=== PATIENT | male | born 1930 | race Caucasian/White ===

== ENCOUNTER 2017-08-17 13:20 | Emergency (ER) | payer MEDICARE, BC ==
[2017-08-17 13:35] VITALS: RESP 16
--- NOTE | 2017-08-17 13:47 | ED ---
General Adult HPI - General Chief complaint: Fall Stated complaint: Fell Time Seen by Provider: 08/17/17 13:34 Source: patient, RN notes reviewed Mode of arrival: EMS Limitations: no limitations - History of Present Illness Initial comments: 87-year-old male presents to the emergency department with a chief complaint of fall. Patient states that his knee buckled with loss although 6 years. Patient denies any use of Coumadin resolved. He states he does take a baby aspirin. Patient states it is little bit of a headache and some right shoulder right elbow pain. Patient states there is no loss of consciousness. He denies any nausea vomiting he denies any neck pain. Patient states he just has a continuous ache in the right shoulder. Patient states is up-to-date. Patient was concerned due to his symptoms. Patient denies any recent fever, chills, shortness of breath, chest pain, back pain, abdominal pain, nausea vomiting, numbness or tingling, dysuria or hematuria, constipation or diarrhea, visual changes, or any other current symptoms. - Related Data Home Medications Medication Instructions Recorded Confirmed Aspirin 81 mg PO DAILY 08/17/17 08/17/17 Atenolol [Tenormin] 25 mg PO DAILY 08/17/17 08/17/17 Cholecalciferol [Vitamin D3] 1,000 unit PO DAILY 08/17/17 08/17/17 Diltiazem HCl [Cartia Xt] 120 mg PO DAILY 08/17/17 08/17/17 Indapamide [Lozol] 1.25 mg PO DAILY 08/17/17 08/17/17 Niacin 1,000 mg PO DAILY 08/17/17 08/17/17 Omeprazole [PriLOSEC] 20 mg PO DAILY 08/17/17 08/17/17 Vit C/E/Zn/Coppr/Lutein/Zeaxan 1 cap PO DAILY 08/17/17 08/17/17 [Preservision Areds 2 Softgel] Allergies Allergy/AdvReac Type Severity Reaction Status Date / Time No Known Allergies Allergy Verified 08/17/17 14:19 Review of Systems ROS Statement: Those systems with pertinent positive or pertinent negative responses have been documented in the HPI. ROS Other: All systems not noted in ROS Statement are negative. Past Medical History Past Medical History: GERD/Reflux, Hypertension History of Any Multi-Drug Resistant Organisms: None Reported Additional Past Surgical History / Comment(s): back surgery Past Psychological History: No Psychological Hx Reported Smoking Status: Current some day smoker Past Alcohol Use History: Daily, Occasional Past Drug Use History: None Reported General Exam - General Exam Comments Initial Comments: General: The patient is awake and alert, in no distress, and does not appear acutely ill. Head: Patient does appear to have a large hematoma does have an associated abrasion to the right posterior aspect of the head Eye: Pupils are equal, round and reactive to light, extra-ocular movements are intact; there is normal conjunctiva bilaterally. No signs of icterus. Ears, nose, mouth and throat: There are moist mucous membranes and no oral lesions. Neck: The neck is supple, there is no tenderness. Cardiovascular: There is a regular rate and rhythm. No murmur, rub or gallop is appreciated. Respiratory: Lungs are clear to auscultation, respirations are non-labored, breath sounds are equal. No wheezes, stridor, rales, or rhonchi. Gastrointestinal: Soft, non-distended, non-tender abdomen without masses or organomegaly noted. There is no rebound or guarding present. No CVA tenderness. Bowel sounds are unremarkable. Back: There is no tenderness to palpation in the midline. There is no obvious deformity. No rashes noted. Musculoskeletal: Normal ROM, minimal tenderness. The right shoulder. Patient does have some skin tears on to the right elbow. There is no pedal edema. There is no calf tenderness or swelling. Sensation intact. Pulses equal bilaterally 2+. Neurological: CN II-XII intact, There are no obvious motor or sensory deficits. Coordination appears grossly intact. Speech is normal. Skin: Skin is warm and dry and no rashes or lesions are noted. Psychiatric: Cooperative, appropriate mood & affect, normal judgment. Limitations: no limitations Course Vital Signs 08/17/17 08/17/17 13:31 15:15 Temperature 97.8 F 97.8 F Pulse Rate 68 63 Respiratory 16 16 Rate Blood Pressure 185/79 175/75 O2 Sat by Pulse 97 95 Oximetry Medical Decision Making - Medical Decision Making 87-year-old male presents emergency Department with a chief complaint of fall. At this time patient's CAT scan is reviewed that does show an acute subdural hemorrhage. At this time we were waiting for family members to arrive because the patient stated they could choose where the patient will be transferred to. This and they're requesting home on. X-rays have come back as well. At this time they do show an old fracture to the right humerus. Patient does recall an event where he did have arm pain many many years ago. At this time he is not tender to the location of the fracture. This tenderness is most likely old fracture. They also are suspicious for possible avulsion fracture patient has no point tenderness over the area. At this time the patient will be transferred to [facility] for continued care. Dr. Rich is in agreement with the transfer. All the questions of the patient family have been answered. Blood pressure has been stable here he is feeling better with morphine. He will be transferred. - Radiology Data Radiology results: report reviewed, image reviewed Disposition Clinical Impression: Fall, Subdural hematoma, Scalp hematoma, Skin tear of right elbow without complication, Contusion of right elbow Disposition: OTHER INSTITUTION NOT DEFINED Referrals: Nonstaff,Physician [Primary Care Provider] - 1-2 days - Out of Hospital Transfer - Req. Specs Out of Hospital Transfer - Requested Specifics: Other Emergency Center ( [facility])
[2017-08-17] MEDS ORDERED: SODIUM CHLORIDE 0.9% 500 ML IV STA (14:49)
--- NOTE | 2017-08-17 14:49 | CT ---
EXAMINATION TYPE: CT brain [place] wo con DATE OF EXAM: 08/17/2017 COMPARISON: NONE HISTORY: Fall injury, abrasion to posterior head area. CT DLP: 1280.6 mGycm Automated exposure control for dose reduction was used. TECHNIQUE: CT scan of the head and cervical spine are performed without contrast. FINDINGS: Hyperdense material is noted overlying the left frontal lobe sulci as well as extending i nto the left temporal lobe compatible with subdural hemorrhage which is acute. There is also a small superficial extracalvarial hematoma overlying the right parietal bone. There is minimal mass effect f rom the hemorrhage. Fourth ventricle is midline. There is diffuse cortical atrophy. There are chronic white matter ischemic changes. Diffuse pain masses noted posterior to the dens process. There are diffuse degenerative changes noted in the cervical spine with multiple endplate osteophytes as well as facet hypertrophy contributing v ariable amounts of central canal and neural foraminal stenosis. No definite acute fracture or subluxa tion is identified. Visualized lung apices are unremarkable. Some heterotopic ossification is identif ied posterior to the mid to lower cervical spine. IMPRESSION: Acute subdural hemorrhage is identified overlying the left frontal lobe sulci extending in the left t emporal lobe. This does not cause significant mass effect. Findings were discussed over the phone with the ordering physician assistant corporate controller by Dr. Maldonado at [phone]
[2017-08-17] MEDS ORDERED: MORPHINE SULFATE 4 MG/ML SYRINGE IV STA (15:12)
--- NOTE | 2017-08-17 15:21 | XR ---
Exam: Right shoulder complete 3 views right shoulder were obtained. No prior studies are available for comparison. FINDINGS: There appears to be a healed proximal right humerus fracture. There is an anchor device noted. There is diffuse osteopenia especially in the proximal humerus which could be due to disuse. There is no blanc bluxation identified. IMPRESSION: There appears to be a healed or healing proximal right humerus fracture. Correlation with prior studi es and medical history is recommended.
--- NOTE | 2017-08-17 15:22 | XR ---
Exam: Right elbow complete 4 views right elbow were obtained. FINDINGS: There is mineralized focus arising from the lateral epicondyles which could relate to heterotopic oss ification. It is difficult to entirely exclude a small avulsion fracture. There is no joint effusion. There is no radiopaque foreign body. IMPRESSION: Mineralized focus arising from the lateral upper condyle could be related to heterotopic ossification or small avulsion fracture fracture. Clinical correlation for point tenderness is recommended.
[2017-08-17 15:29] LABS: Basophils % (A) 0 %; CH 29.5; CHCM 33.6; Eosinophils # (A) 0.1 k/uL (0-0.7); Eosinophils % (A) 1 %; HCT 41.8 % (39.0-53.0); HGB 14.4 gm/dL (13.0-17.5); Luc # (Auto) 0.15; Luc % (Auto) 1; Lymphocytes # (A) 1.2 k/uL (1.0-4.8); Lymphocytes % (A) 8 %; MCH 30.5 pg (25.0-35.0); MCHC 34.5 g/dL (31.0-37.0); MCV 88.3 fL (80.0-100.0); Mean Platelet Volume 7.8; Monocytes # (A) 0.9 k/uL (0-1.0); Monocytes % (A) 6 %; Neutrophils # (A) 12.9 k/uL (1.3-7.7); Neutrophils % (A) 85 %; RBC 4.73 m/uL (4.30-5.90); WBC 15.3 k/uL (3.8-10.6); WBC (Perox) 15.34
[2017-08-17 15:35] LABS: ALT 24 U/L (21-72); AST 33 U/L (17-59); Alkaline Phosphatase 67 U/L (38-126); Anion Gap 10 mmol/L; Blood Urea Nitrogen 17 mg/dL (9-20); Calcium 9.5 mg/dL (8.4-10.2); Carbon Dioxide 28 mmol/L (22-30); Chloride 99 mmol/L (98-107); Glucose 97 mg/dL (74-99); Non-African American GFR(MDRD) >60 (>60 ml/min/1.73 sqM); Sodium 137 mmol/L (137-145); Total Bilirubin 0.8 mg/dL (0.2-1.3); Total Protein 7.8 g/dL (6.3-8.2)
[2017-08-17 15:41] LABS: INR 1.1 (<1.2); Partial Thromboplastin Time 27.8 sec (22.0-30.0); Prothrombin Time 11.1 sec (9.0-12.0)
[2017-08-17] MEDS ORDERED: HYDROmorphone 1 MG/ML 1 ML SYRINGE IVP STA (15:48)
[2017-08-17 16:08] VITALS: BP 174/74; PULSE 67; TEMP 97.5
== END 2017-08-17 16:07 | disposition short-term general hospital (02) ==
LOC: EC 13:20
DX: S06.5X0A Traumatic subdural hemorrhage without loss of consciousness, initial encounter (principal); S51.011A Laceration without foreign body of right elbow, initial encounter; S00.03XA Contusion of scalp, initial encounter; M25.511 Pain in right shoulder; I10 Essential (primary) hypertension; K21.9 Gastro-esophageal reflux disease without esophagitis; F17.200 Nicotine dependence, unspecified, uncomplicated; Z79.82 Long term (current) use of aspirin; Z79.899 Other long term (current) drug therapy; Z87.81 Personal history of (healed) traumatic fracture; X50.1XXA Overexertion from prolonged static or awkward postures, initial encounter; W10.9XXA Fall (on) (from) unspecified stairs and steps, initial encounter; Y92.009 Unspecified place in unspecified non-institutional (private) residence as the place of occurrence of the external cause
CPT/HCPCS: 99285; 96374; 96375; 96361; 36415; 80053; 85025; 85610; 85730; 73030; 73080; 72125; 70450; J2270; J1170